=== PATIENT | female | born 1975 | race Caucasian/White ===

== ENCOUNTER → 2024-06-02 15:33 | Outpatient (REF) | payer OTHER, SELFPAY | LOC: HWWDC 15:33 | PROVIDERS: ATTENDING PHYSICIAN Nurse Practitioner Adult Health | DX: Z12.31 Encounter for screening mammogram for malignant neoplasm of breast (principal) | CPT/HCPCS: 77063; 77067 ==

== ENCOUNTER 2024-07-02 07:53 | Inpatient (IN) | payer OTHER, SELFPAY ==
[2024-07-02] VITALS (7 sets, daily range): BP systolic 88–113; BP diastolic 55–62; BMI 28.5; BMI 28.6
[2024-07-02] MEDS: NSS 1000 IV ×2 (03:29→06:20)
[2024-07-02] MEDS: MORPHINE SULFATE 4 MG IV (03:30)
[2024-07-02] MEDS: ZOFRAN 4 MG IV (03:31)
--- NOTE | 2024-07-02 03:46 | ED.GENMED ---
History of Present Illness
General
Chief Complaint: Abdominal Symptoms
Source: patient
Exam Limitations: none
Time Seen by Provider: 07/02/24 03:33
Nursing documentation reviewed up to this point in time: agreed with
History of Present Illness
History of Present Illness:
49-year-old female presents with abdominal distention and pain. It has been going on since this evening after she ate a third of a bag of carrots. She denies any previous abdominal surgeries. Denies fever or chills. Has nausea and vomiting.
Review of Systems
Review of Systems
Allergies reviewed?: Yes
All Other Systems: ROS reviewed and negative except as documented in HPI and ROS
Constitutional: Reports no symptoms
EENT: Reports no symptoms
Respiratory: Reports no symptoms
Cardiac: Reports no symptoms
ABD/GI: Reports abdominal pain, nausea and vomiting
: Reports no symptoms
Musculoskeletal: Reports no symptoms
Skin: Reports no symptoms
Neurological: Reports no symptoms
Endocrine: Reports no symptoms
Hematologic/Lymphatic: Reports no symptoms
Psychiatric: Reports anxiety
Phy Exam
General Physical Exam
General Presentation: well appearing and no apparent distress
General Skin: warm and dry
General Habitus: normal
General Mental: alert
General Hydration: appears well hydrated
ENT Exam
ENT Exam: EOMI, pharynx normal, neck supple and normocephalic
Eye Exam
Eye Exam: PERRL, cornea clear and conjunctiva normal
Cardiovascular Exam
Cardiovascular Exam: regular rate/rhythm, no edema, no murmur and normal peripheral pulses
Pulmonary Exam
Pulmonary Exam: lungs clear, no respiratory distress, no rales, no crackles, no rhonchi, no stridor, no wheezing and no cough
Gastrointestinal Exam
Gastrointestinal Exam: abnormal bowel sounds, distended and guarding
Palpation: left lower quadrant: Moderate tenderness
Neurological Exam
Neurological Exam: alert, oriented x3, no motor deficits and speech normal
Musculoskeletal Exam
Musculoskeletal Exam: full ROM
Skin Exam
Skin Exam: normal color and warm/dry
Psychiatric Exam
Psychiatric Exam: normal mood/affect
Course
Orders/Labs/Results
Orders:
Orders
07/02/24 03:26
Morphine Sulfate 4 mg .ROUTE .STK-MED ONE
Ondansetron Injectable [Zofran] 4 mg .ROUTE .STK-MED ONE
07/02/24 03:27
IV Insert/Care/Rem.- Treatment PRN
07/02/24 03:28
Test Result ONCE
07/02/24 03:29
0.9% Sodium Chloride 1000 ml [Nss] 1,000 ml IV BOLUS
Morphine Sulfate 4 mg IV NOW STA
07/02/24 03:30
Ondansetron Injectable [Zofran] 4 mg IV NOW STA
07/02/24 03:38
Complete Blood Count/With Diff Urgent
Comprehensive Metabolic Panel Urgent
HCG, Serum Qualitative Screen Urgent
Comment: Notify provider if positive test present
Lactic Acid Urgent
Lipase Urgent
07/02/24 03:46
CT Abd/pelvis W Iv Cont Urgent
Comment:
Reason For Exam: abd pain/distention, hypoactive bs
Abnormal Lab Results
07/02/24
03:38
WBC 12.5 H 10^3/uL
(4.8-10.8)
MCH 31.2 H pg
(27.0-31.0)
Absolute Neuts (auto) 10.2 H 10^3/uL
(1.4-6.5)
Absolute Monos (auto) 0.8 H 10^3/uL
(0.1-0.6)
Neutrophils % 81.6 H %
(42.2-75.2)
Lymphocytes % 11.2 L %
(20.5-51.1)
Glucose 149 H mg/dl
(70-99)
Calcium 10.3 H mg/dl
(8.4-10.2)
Total Protein 8.7 H g/dl
(6.3-8.2)
07/02/24 03:38
07/02/24 03:38
Vital Signs
Initial and Last Documented VS:
Initial Vital Signs
Pulse Ox
98
07/02/24 03:20
Last Documented Vital Signs
Temp BP Pulse Ox
98.3 F 89/61 98
07/02/24 03:42 07/02/24 05:00 07/02/24 05:19
*Critical Care Note
Total Time (30-74mins, 75-104mins- exclusive of procedures): Not Applicable
Update Note
Update Note:
IMPRESSION:
Dilated loops of small bowel suspicious for obstruction, transition point within the pelvis. Stomach mildly distended. Gastric and small bowel inflammation suggesting gastroenteritis. No perforation or fluid collection.
No cholecystitis, pancreatitis, or obstructing renal stone. Spleen and adrenal glands normal. Pelvic congestion syndrome. Chronic L5 pars defects.
ED Attending Note
-
Portions of this chart may have been created with voice recognition software.� Occasional wrong word or��sound alike� substitutions may have occurred due to the inherent limitations of voice recognition software.
Discharge Plan
Departure
Patient Disposition: Admit
Date of Disposition: 07/02/24
Time of Disposition: 06:15
Admit to: Telemetry
Presentation/result/management discussed w/ accepting MD/DO: Hospitalist
Condition: Good
Discharge Problem:
SBO (small bowel obstruction)
Referrals:
UNKNOWN - PT DOES,NOT KNOW [Family Provider] -
Interventions
Interventions:
*Risk Screen - Suicide Last Done: 07/02/24 03:57
*General Assessment Last Done: 07/02/24 03:35
*Neglect/Abuse Screening Last Done: 07/02/24 03:35
*ED- Fall Risk Assessment Last Done: 07/02/24 03:35
*ED COVID-19 Vaccine History Last Done: 07/02/24 03:35
[facility]-Bnorlp-Ealspokxcg Assessment Last Done: 07/02/24 03:35
Discharge Date and Time
Print Language: KHMER
[2024-07-02 03:51] LABS: % Basophils 0.6 % (0-2); % Eosinophils 0.3 % (0-6); % Immature Granulocytes 0.3 % (0-0.5); % Lymphocytes 11.2 % (20.5-51.1); % Neutrophils 81.6 % (42.2-75.2); Absolute Basophils 0.1 10^3/uL (0-0.2); Absolute Lymphocytes 1.4 10^3/uL (1.2-3.4); Absolute Monocytes 0.8 10^3/uL (0.1-0.6); Absolute Neutrophils 10.2 10^3/uL (1.4-6.5); Hematocrit 43.2 % (37.0-47.0); Hemoglobin 14.4 g/dL (12.0-16.0); Mean Corp Hgb Conc. 33.3 g/dL (33.0-37.0); Mean Corpuscular Hgb 31.2 pg (27.0-31.0); Mean Corpuscular Volume 93.7 fL (81.0-99.0); Mean Platelet Volume 10.4 fL (7.4-10.4); Nucleated Red Blood Cells % 0 %; Platelet Count 312 10^3/uL (130-400); Red Blood Cell Count 4.61 10^6/uL (4.20-5.40); Red Cell Dist. Width 12.3 % (11.5-14.5); White Blood Cell Count 12.5 10^3/uL (4.8-10.8)
[2024-07-02 04:05] LABS: Lactic Acid 1.1 mmol/L (0.7-2.0)
[2024-07-02 04:16] LABS: HCG, Serum Qualitative Screen Negative
[2024-07-02 04:31] LABS: ALT (SGPT) 23 U/L (0-35); AST (SGOT) 29 U/L (14-36); Albumin 4.9 g/dl (3.5-5.0); Alkaline Phosphatase 86 U/L (38-126); Blood Urea Nitrogen 15 mg/dl (7-17); Calcium 10.3 mg/dl (8.4-10.2); Carbon Dioxide 29 mmol/L (22-30); Chloride 102 mmol/L (98-107); Estimated Creatinine Clearance 72 ml/min; Glucose 149 mg/dl (70-99); Lipase 115 U/L (23-300); Potassium 4.5 mmol/L (3.5-5.1); Sodium 140 mmol/L (135-145); Total Bilirubin 0.6 mg/dl (0.2-1.3); Total Protein 8.7 g/dl (6.3-8.2); eGFR > 60.00
--- NOTE | 2024-07-02 06:25 | HPS.HSE ---
Family Physician
-
Family Physician: NOT KNOW UNKNOWN - PT DOES
Chief Complaint
-
Abdominal pain
History of Present Illness
This is a 49-year-old female with no known significant past medical history presenting to the emergency department with acute onset of abdominal pain bloating and multiple episodes of vomiting.
Patient reported that she recently traveled to [place] and arrived back about 5 days ago. She had no symptoms while she was on a trip. She has had no symptoms since arrival until just coming to the emergency department. She stated that at around 2
PM she ate a large bag of carrots and then ate at a restaurant. Thereafter she started feeling nauseous. After returning home trying to sleep she reported sudden onset of vomiting that was initially nonbloody and nonbilious. She again tried to
rest and then started having crampy abdominal pain with intense bloating. She started vomiting again until there was not a left vomiting and she had been dry heaving. She reported that she vomited up almost 10 times. It has been nonbloody. She
reported she is not having any diarrhea. She reports she has been passing gas. No bowel movements since meal earlier in the day.
Patient has no history of surgeries. She has no history of inflammatory bowel disease or bowel disorder. She is not on any opioids. She denies any recreational drug use.
In the emergency department she had a borderline blood pressure of 89/60 with a pulse rate of 90, temperature was 98 Fahrenheit and she was at 98% on room air. She had a white count of 12.5 with normal hemoglobin and platelets. Electrolytes BUN
and creatinine normal. LFTs were normal.
She has a CT scan that shows dilated loops of small bowel suspicious for obstruction, transition point within the pelvis, stomach mildly dilated, gastric and small bowel inflammation suggestive of gastroenteritis, no perforation or fluid collection.
Medical History
Past Medical History
Past Medical History: Reports None
Past Surgical History: Reports None
Social History
Tobacco: Non-smoker
Alcohol: Occasional
Drug: None
Personal:
Living: With Family
Family History
Family History: Cancer (Sister with breast cancer)
Allergies / Home Medications
Allergies reflects when Allergies were last updated in [facility].
Home Medications with original date entered in [facility]
Allergy/Medication List:
Allergies
Allergy/AdvReac Type Severity Reaction Status Date / Time
No Known Allergies Allergy Verified 07/02/24 03:42
No home medications
Review of Systems
-
History Source: Patient
Constitutional: Reports No Symptoms
EENT: Reports No Symptoms
Respiratory: Reports No Symptoms
Cardiac: Reports No Symptoms
Abdomen/GI: Reports Abdominal Pain, Nausea and Vomiting
: Reports No Symptoms
Musculoskeletal: Reports No Symptoms
Skin: Reports No Symptoms
Neurological: Reports No Symptoms
Endocrine: Reports No Symptoms
Hematologic/Lymphatic: Reports No Symptoms
Psych: Reports No Symptoms
Physical Exam
Vital Signs
Vital Signs
Temp BP Pulse Ox
98.3 F 89/61 98
07/02/24 03:42 07/02/24 05:00 07/02/24 05:19
Physical Exam
General: Well Developed, Well Nourished, No Apparent Distress and Comfortable
HEENT: NormoCephalic, Anicteric, Moist mucous membranes and Atraumatic
Respiratory: Clear
Cardiac: S1/S2 and Regular Rhythm
Breast: Deferred by me
GI: Soft, Non Distended and Normal Bowel Sounds
Rectal: Deferred by Provider
Genito-urinary: Deferred by me
Musculoskeletal: No Clubbing, No Cyanosis and No Edema
Skin: Warm
Neuro: AO x 3 and Nonfocal/grossly intact
Hematologic/Lymphatic: No Lymphadenopathy
Psych: Calm
Laboratory Results
-
07/02/24 03:38
07/02/24 03:38
Laboratory Results
Lactic Acid 1.1 mmol/L (0.7-2.0) 07/02/24 03:38
Total Bilirubin 0.6 mg/dl (0.2-1.3) 07/02/24 03:38
AST 29 U/L (14-36) 07/02/24 03:38
ALT 23 U/L (0-35) 07/02/24 03:38
Alkaline Phosphatase 86 U/L (38-126) 07/02/24 03:38
Lipase 115 U/L (23-300) 07/02/24 03:38
Data Reviewed
-
CT Scan: Report Reviewed by me
Lab Data: Labs Reviewed by me
Old Records: Reviewed
Impression/Plan
-
IMPRESSION:
49-year-old female with no known signal past medical history presenting to the emergency department with acute onset of crampy abdominal pain and intractable nausea and vomiting and found to have small bowel obstruction on CT scan with a transition
point within the pelvis. CT scan also consistent with gastroenteritis, no evidence of fluid collection or perforation. Patient is afebrile. She has a mild leukocytosis to 12.5. Electrolytes BUN/creatinine were in the normal range. Blood
pressure is slightly lower at around 90/60. She has no history of hypertension. Patient has been doing well after receiving a dose of Zofran. She has not had any other vomiting episodes since receiving the Zofran. Abdomen is currently
nondistended, minimal pain. She has positive bowel sounds. Lactic acid is normal here shows no ischemia on the CT scan. Suspect possible ileus versus partial small bowel obstruction secondary to inflammatory changes. The inflammatory changes
appears to be in the setting of gastroenteritis. No personal history of family history of inflammatory bowel disease. She has had no intra-abdominal surgeries. Drop in BP likely from the 4mg of morphine.
PLAN:
1. SBO -patient with apparent SBO but without any basis for this in history. Suspect secondary to gastroenteritis. I suspect more ileus than actual SBO
- admit to med/surg
- follow up final read on CT scan
- pain control and anti-emetics for now
- monitor for need for NG placement but currently no indication
- NPO except meds, IV fluids and serial abdominal examination.
- patient currently well appearing, consider repeat scan with po contrast and with small bowel follow through when able to tolerate po
- if symptoms worsen or persist with recurrent nausea, consider surgical consult
DVT PPX - lovenox sq
Code status - Full code
--- NOTE | 2024-07-02 09:58 | PTCARENOTE ---
Received pt from ER via stretcher, accompanied by ER staff. Pt AAO x3, GRUBER well, ambulatory to bed, no c/o weakness/dizziness. VSS. On room air- pulse ox 99%, no SOB. Abd soft, rounded, BS hypoactive. Pt denies nausea/abd discomfort. Voided in
BR upon arrival to unit. Afebrile; skin W/D/I. Oriented to 4East, currently resting comfortably. Will continue to monitor.
[2024-07-02] MEDS: D5LR 500 IV (10:35)
[2024-07-02] MEDS: FLUSH (NSS) 1 FLUSH IV (10:36)
--- NOTE | 2024-07-02 11:40 | W.DS.TRANS ---
DC Summary - [employer]
-
Discharge Instructions:
Discharge Diagnosis/Procedures Acute gastroenteritis
Diet Low Residue
Instructions:
Stand-Alone Forms:
Changes to Home Medications: No
Discharge Medications:
DC Medications w/original date entered in [facility]
No Meds [No Current Medications] 07/02/24
Home Medication Changes
Pending Results: No
== END 2024-07-02 14:43 | disposition home or self-care (01) | DRG 392 ==
LOC: 4 EAST ACU 07:53
PROVIDERS: ADMITTING PHYSICIAN Internal Medicine; ATTENDING PHYSICIAN Internal Medicine; EMERGENCY PHYSICIAN Student in an Organized Health Care Education/Training Program
DX: K52.9 Noninfective gastroenteritis and colitis, unspecified (principal); N94.89 Other specified conditions associated with female genital organs and menstrual cycle; Z80.3 Family history of malignant neoplasm of breast
CPT/HCPCS: 74177; 80053; 83605; 83690; 84703; 85025; 96374; 96375; 99284; Q9967